=== PATIENT | female | born 1935 | race Caucasian/White ===

== ENCOUNTER → 2016-03-19 12:27 | Outpatient (CLI) | payer MEDICARE, OTHER | END | disposition home or self-care (01) | LOC: D.MRI 12:27 | DX: R41.3 Other amnesia (principal) ==

== ENCOUNTER → 2016-11-10 16:50 | Outpatient (CLI) | payer MEDICARE, OTHER | END | disposition home or self-care (01) | LOC: D.MAMMO 11-09 09:45 | DX: Z12.31 Encounter for screening mammogram for malignant neoplasm of breast (principal) ==

== ENCOUNTER → 2017-11-16 18:55 | Outpatient (CLI) | payer MEDICARE, OTHER | END | disposition home or self-care (01) | LOC: D.MAMMO 11-15 10:15 | DX: Z12.31 Encounter for screening mammogram for malignant neoplasm of breast (principal) ==